=== PATIENT | male | born 1955 | race Caucasian/White ===

== ENCOUNTER 2024-06-05 11:53 | Emergency (ER) | payer MEDICARE ==
[~2024-06-05 11:53] MED LIST: Iopamidol 370 76% 100 ML VIAL ONE; Sodium Chloride 0.9% 100 ML BAG ONE
[2024-06-05] MEDS ORDERED: Ipratropium/Albuterol 3 ML NEB ONE (12:22)
[2024-06-05] MEDS ORDERED: Albuterol 2.5 MG (3 mL) NEB ONE ×2 (12:57→14:10)
[2024-06-05] MEDS ORDERED: Amoxicillin/Potassium Clav 875 MG TAB ONE (12:58)
[2024-06-05] MEDS ORDERED: Ipratropium Bromide 2.5 ml Neb ONE ×2 (12:58→14:10)
[2024-06-05] MEDS ORDERED: predniSONE 20 MG TAB ONE (12:58)
[2024-06-05] MEDS ORDERED: cefTRIAXone (ROCEPHIN) 2 GM VIAL ONE (14:10)
[2024-06-05] MEDS ORDERED: Azithromycin 500 MG VIAL ONE (14:10)
[2024-06-05] MEDS ORDERED: Magnesium 2 GM/50 ML BAG (IN WATER) ONE (14:10)
[2024-06-05 14:40] LABS: INR-International Normal Ratio 1.1; Prothrombin Time 14.1 sec (12.0-14.7)
[2024-06-05 14:41] LABS: PTT 33.1 sec (22.9-36.1)
[2024-06-05 14:42] LABS: ALT (SGPT) 30 U/L (8-55); AST (SGOT) 17 U/L (5-34); Albumin 3.3 g/dL (3.4-4.8); Alkaline Phosphatase 70 U/L (40-110); Anion Gap 15 mmol/L (10-20); BUN (Urea Nitrogen) 32 mg/dL (8.4-25.7); Bilirubin, Total 0.3 mg/dL (0.2-1.2); Calc. Creatinine Clearance 0 mL/min (70-130); Calcium 8.1 mg/dL (7.8-10.44); Carbon Dioxide 24 mmol/L (23-31); Chloride 105 mmol/L (98-107); Estimated GFR 37; Globulin 3.6 g/dL (2.4-3.5); Glucose 109 mg/dL (80-115); Potassium 4.4 mmol/L (3.5-5.1); Protein, Total 6.9 g/dL (5.8-8.1); Sodium 140 mmol/L (136-145)
[2024-06-05 14:45] LABS: Anisocytosis SLIGHT = 6-15 cells (100X) (0-5/hpf); Band 14 % (5-11); Hematocrit 39.7 % (42.0-52.0); Hemoglobin 11.8 g/dL (14.0-18.0); Hypochromia SLIGHT = 6-15 cells (100X) (0-5/hpf); Lymphocytes 12 % (21-51); MDiff Complete? YES; Mean Corpuscular HGB CONC 29.7 g/dL (32.0-36.0); Mean Corpuscular Hemoglobin 25.8 pg (27.0-31.0); Mean Corpuscular Volume 86.6 fl (78.0-98.0); Mean Platelet Volume 6.9 fL (7.4-10.4); Monocytes 10 % (0-10); Neutrophil 62 % (42-75); Platelet Adequacy Comment Appears Adequate; Platelet Count 168 10x3/uL (130-400); RBC Distribution Width 15.8 % (11.5-14.5); Red Blood Cell (RBC) Count 4.58 mill/uL (4.70-6.10); Target Cells SLIGHT = 2-5 cells (100X) (0-1/hpf); White Blood Cell (WBC) Count 8.5 10x3/uL (4.8-10.8)
[2024-06-05 14:49] LABS: Troponin I 0.014 ng/mL (< 0.028)
[2024-06-05 14:50] LABS: Base Excess-Venous 0.9 mmol/L (-2.0 to 3.0); CO2 Tension (PvCO2) 94.6 mmHg (42.0-51.0); Calcium, Ionized 1.18 mmol/L (1.15-1.33); Chloride 102 mmol/L (98-107); Hemoglobin - Calc 14.4 g/dL (14.0-18.0); Potassium 4.4 mmol/L (3.5-5.1); Sodium 142 mmol/L (138-145); T. Carbon Dioxide 35.9 mmol/L (22.0-28.0)
== END 2024-06-05 15:55 | disposition home or self-care (01) ==
LOC: MADERS 11:53
DX: J44.1 Chronic obstructive pulmonary disease with (acute) exacerbation (principal); I10 Essential (primary) hypertension; E78.5 Hyperlipidemia, unspecified; E11.9 Type 2 diabetes mellitus without complications; F17.210 Nicotine dependence, cigarettes, uncomplicated
CPT/HCPCS: 36415; 71045; 71275; 80053; 82330; 82803; 83605; 83880; 84484; 85025; 85379; 85610; 85730; 87040; 87400; 87426; 93005; 94640; 94760; 96365; 96367; 96375; J0456; J0696; J3475; J7512; J7611; J7620; J7644; Q9967